=== PATIENT | female | born 1980 | race Caucasian/White ===

== ENCOUNTER → 2024-01-26 18:32 | Outpatient (CLI) | payer OTHER, SELFPAY | PROVIDERS: Visit Provider Physician Assistant | DX: R30.0 Dysuria (principal) | CPT/HCPCS: 87077; 87086; 87186 ==

== ENCOUNTER → 2024-07-25 09:00 | Outpatient (CLI) | payer OTHER, SELFPAY ==
[2024-07-25 10:07] LABS: Hemoglobin A1C% w Est Avg Glu 5.1 % (4.0-6.0)
[2024-07-25 10:12] LABS: Alanine Aminotransferase 16 IU/L (<35); Albumin 3.9 g/dL (3.5-5.0); Albumin Globulin Ratio 1.3 (1.0-2.8); Alkaline Phosphatase 65 U/L (38-126); Aspartate Aminotransferase 19 IU/L (14-36); BUN Creatinine Ratio 22.1 (6-22); Bilirubin Total 0.4 mg/dL (0.2-1.3); Blood Urea Nitrogen 15 mg/dL (7-17); Calcium 8.9 mg/dL (8.4-10.2); Carbon Dioxide 24 mmol/L (22-32); Chloride 104 mmol/L (98-107); Cholesterol 136 mg/dL (140-199); Estimated Glomerular Filt Rate > 60 mL/min (>60); Globulin 2.9 g/dL (1.7-4.1); Glucose 85 mg/dL (70-100); HDL Cholesterol 62 mg/dL (40-60); HEMOLYSIS < 15 (0-50); LDL Cholesterol Calculated 62 mg/dL (<100); Potassium 4.4 mmol/L (3.4-5.1); Sodium 135 mmol/L (137-145); Total Protein 6.8 g/dL (6.3-8.2); Triglycerides 62 mg/dL (35-150)
[2024-07-25 17:37] LABS: HIV 1 & 2 Ab/Ag 4th Gen Combo NEGATIVE (NEGATIVE); Hep C Virus Ab w/Reflex Quant NEGATIVE s/c (NEGATIVE)
== END ==
LOC: LAB 09:01
PROVIDERS: PCP Family Medicine; Referring Provider Family Medicine; Visit Provider Family Medicine
DX: E66.9 Obesity, unspecified (principal); Z72.0 Tobacco use; F11.20 Opioid dependence, uncomplicated; Z11.4 Encounter for screening for human immunodeficiency virus [HIV]; Z11.59 Encounter for screening for other viral diseases
CPT/HCPCS: 36415; 80053; 80061; 83036; 86803; 87389

== ENCOUNTER 2025-08-16 06:49 | Emergency (ER) | payer SELFPAY ==
[2025-08-16 06:56] VITALS: BP 143/70; PULSE 72; RESP 16; TEMP 36.9; O2SAT 100; BMI 31.1
[2025-08-16 07:15] LABS: Appearance Urine UA CLEAR; Bilirubin Urine UA NEGATIVE (NEGATIVE); Color Urine UA YELLOW; Glucose Urine UA NEGATIVE (Negative); Ketones Urine UA TRACE (NEGATIVE); Leukocyte Esterase Urine UA NEGATIVE (NEGATIVE); Nitrite Urine UA NEGATIVE (Negative); Occult Blood Urine UA NEGATIVE (Negative); Protein Urine UA 1+ (Negative); Specific Gravity Urine UA 1.025 (1.000-1.035); Urobilinogen Urine UA 1.0 E.U./dL (0.2); pH Urine UA 6.0 (4.5-8.0)
[2025-08-16 07:23] LABS: Culture Indicated Urine Cult Not Indicated
--- NOTE | 2025-08-16 07:28 | ED_ITS ---
HPI - Back Pain/Injury General Chief Complaint: Abdominal Pain Stated Complaint: Lower back pain x 4 days Time Seen by Provider: 08/16/25 06:59 Source: patient History of Present Illness HPI Narrative: 44-year-old female with atraumatic back pain for 4 days. Lower back pain not radiating not associated with fevers nausea vomiting or problems with bowel or bladder control. She has had intermittent back pain in the past. Has been using ibuprofen intermittently. Is on Suboxone. Has not seen her primary care provider. No weakness. Just finished her menstrual period. Related Data Home Medications ?Medication ?Instructions ?Recorded ?Confirmed buprenorphine 8 mg-naloxone 2 mg 1.5 tab sublingual DA BENJAMIN 01/26/24 08/23/24 sublingual tablet Allergies Allergy/AdvReac Type Severity Reaction Status Date / Time No Known Drug Allergies Allergy Verified 08/16/25 06:57 Patient History Medical History Opiate dependence Vapes nicotine containing substance Surgical History (Updated 08/21/24 @ 19:41 by Che Vallejo) Anesthesia History of abdominal surgery History of appendectomy (~02/2018) Family History (Updated 08/21/24 @ 19:46 by Che Vallejo) Father Diabetes mellitus Hypertension Hyperlipidemia [place]'s disease Mother Addiction Hypertension Mental health problem Brother Addiction Sister Addiction Grandfather Stroke Grandfather Diabetes mellitus Grandmother Diabetes mellitus Social History Smoking Status: Current every day smoker Smoking Status: Current every day smoker tobacco type: e-cigarettes Exam Initial Vital Signs Initial Vital Signs: Vital Signs Temperature 98.5 F 08/16/25 06:56 Pulse Rate 72 08/16/25 06:56 Respiratory Rate 16 08/16/25 06:56 Blood Pressure 143/70 H 08/16/25 06:56 Pulse Oximetry 100 08/16/25 06:56 Oxygen Delivery Method Room Air 08/16/25 06:56 Appears to be in no distress walks with an antalgic gait vital signs reviewed and unremarkable Back/Spine/Pelvis Other: No CVAT, mild diffuse tenderness of the lumbar spine and paraspinous muscles no rash back is supple. Neuro Other: Motor sensation and reflexes are intact in the lower extremities Course Orders Ordered: ED Orders 08/16/25 07:05 UA Complete [Urinalysis and Microscopic] Stat Vital Signs Vital signs: Vital Signs - 8 hr 08/16/25 06:56 Temperature 98.5 F Pulse Rate 72 Respiratory Rate 16 Blood Pressure 143/70 H Pulse Oximetry 100 Oxygen Delivery Method Room Air MDM - Back Pain/Injury Medical Records Medical records narrative: 4 Lab Data Labs: Lab Results 08/16/25 Range/Units 07:05 Urine Color Yellow Urine Appearance Clear Urine pH 6.0 (4.5-8.0) Ur Specific [place] 1.025 (1.000-1.035) Urine Protein 1+ H (Negative) Urine Glucose (UA) Negative (Negative) g/dL Urine Ketones Trace H (NEGATIVE) Urine Occult Blood Negative (Negative) Urine Nitrate Negative (Negative) Urine Bilirubin Negative (NEGATIVE) Urine Urobilinogen 1.0 (0.2) E.U./dL Ur Leukocyte Esterase Negative (NEGATIVE) Urine RBC None seen (0-5/HPF) Urine WBC None seen (0-5/HPF) Ur Squamous Epith Cells 1-5 /hpf (0-5/HPF) Urine Bacteria None seen (None) Urine Mucus 2+ H (Negative) Ur Culture Indicated? Cult not indicated Vol Urine Centrifuged 10ml (spun) MDM Narrative Medical decision making narrative: 4-year-old female previously healthy no red flag features such as diabetes immunosuppression or fever. Has atraumatic back pain with an intact neurologic exam. Has been under using NSAIDs and not using Tylenol at all. I counseled her regarding OTC analgesia. She declined a muscle relaxer. Recommended she follow up soon with the primary care provider recommended activity as tolerated and gentle stretching. Discharge Plan Departure Patient Disposition: Home Clinical Impression: Back pain Qualifiers: Back pain location: low back pain Chronicity: acute Back pain laterality: bilateral Sciatica presence: without sciatica Qualified Code(s): M54.50 - Low back pain, unspecified Activity Restrictions/Additional Instructions: Your history and examination today are reassuring, I do not think that there is anything dangerous causing your back pain today. As we discussed, you can take ibuprofen 600 mg 3 times a day take this on a regular basis until your pain is i mproving. Take it with food. You can also use acetaminophen (Tylenol) 650-1000 mg up to 4 times a day. Activity as tolerated ice or heat if you find them helpful. Follow up soon with her primary care provider. Gentle stretching. If you develop problems with bowel or bladder function or fevers return to the emergency department. Prescriptions: No Action buprenorphine-naloxone 8-2 mg tablet, sublingual 1.5 tab sublingual DAILY Referrals: Silvia Sweeney DO [Primary Care Provider, Family Practice] Stand Alone Forms: Patient Portal/API
== END 2025-08-16 07:36 | disposition home or self-care (01) ==
PROVIDERS: Emergency Provider Emergency Medicine; PCP Family Medicine
DX: M54.50 Low back pain, unspecified (principal)
CPT/HCPCS: 81001; 99281; 99282